=== PATIENT | female | born 1955 | race Caucasian/White ===

== ENCOUNTER 2023-05-02 10:43 | Outpatient (OUT) | payer OTHER, SELFPAY ==
--- NOTE | 2023-05-02 | VEIN_ITS ---
[address] [address] Patient Name: BELIA RIOS MRN: [id number] date: 1955 Sex: F Assigned Patient Location: Current Patient Location: Accession/Order Number: [id number] Exam Date: 05/02/2023 11:00 Report Date: 05/02/2023 12:12 At the request of: RIP ALCARAZ Procedure: VC INJ Foam Sclerosant WUS BANBURY MACHINE OPERATOR PROCEDURE: VC INJ Foam Sclerosant WUS BANBURY MACHINE OPERATOR COMPARISON: Bilateral venous reflux 03/14/2023 HISTORY: Pain due to varicose veins of bilateral legs I83.813 Pre-operative Diagnosis: CEAP class C5 venous insufficiency with pain, tenderness, edema and incompetent branch saphenous vein(s), chronic venous insufficiency right leg secondary to venous incompetence Post-operative Diagnosis: CEAP class C5 venous insufficiency with pain, tenderness, edema and incompetent branch saphenous vein(s), chronic venous insufficiency right leg secondary to venous incompetence Procedure Performed: 1. Ultrasound-guided microfoam chemical ablation with Varithenaregistered 2. Intraoperative ultrasound guidance Physician: Elier Milian M.D. Anesthesia: None Indications for Procedure: 67 year old female. Symptoms including lower extremity swelling, pain, cramping, bulging veins for many years despite conservative medical therapy including medical compression stockings, exercise and analgesics. Prior procedures include : None. Multiple incompetent varicosities of the right leg. Duplex scan showed reflux and enlarged diameters up to 4 mm. The patient underwent informed consent including management options where the complications of infection, bleeding, pain, and skin injury were discussed. Particular attention was spent discussing thrombus extension and deep vein thrombosis as well as the possibility of pulmonary embolus and treatment with oral or injectable blood thinners. Procedure: The patient walked to the procedure room. All applicable staff donned appropriate apparel. A procedure timeout was performed to confirm correct patient, correct extremity, correct procedure, and correct room set-up including presence of all applicable supplies, devices, and drugs. A duplex ultrasound, performed by myself confirmed the location and incompetence of branch saphenous varicosities and their course was marked on the skin together with the dilated tributaries. The extent of treatment of the vein and the associated varicosities was determined through ultrasound mapping. The skin was prepped and then punctured with a butterfly needle and advanced under ultrasound guidance. The Varithenaregistered canister was activated and the canister was primed and purged as required in the instructions for use. Varithenaregistered was drawn into a sterile syringe. Varithenaregistered was slowly administered at 0.5-1.0 cc/second with close observation by ultrasound of its course in the vessels. Total volume utilized was: 15 mL (10 mL within the 4 mm incompetent varicosity of the distal medial lower leg; 5 mL into a 4 mm incompetent varicosity of the anterior lateral lower leg). Following administration of Varithenaregistered the leg was elevated and the patient was asked to repeatedly dorsiflex the ankle to limit flow of Varithenaregistered into perforating veins. Once appropriate spasm had been confirmed in the treated veins, the vascular catheter was removed from the leg and light pressure was applied over the puncture site for hemostasis. The common femoral and deep superficial veins were then evaluated for flow and compressibility prior to dressing placement. The lower extremity was kept elevated at 45 degrees above the horizontal and cording material was applied over the saphenous segments and tributaries to allow for eccentric compression over the target vessels including the targeted saphenous vein(s). A multilayer dressing was applied consisting of foam pads, coban and thigh-high 20-30 mm Hg compression elastic support hose were placed on the patient. The leg was lowered only after compression had been applied and the patient was immediately ambulatory. The patient ambulated 10 minutes under supervision and was without apparent concerns at time of release. Post-care instructions include advising patient to keep post-treatment bandages in place and dry for 48 hours, avoid extended periods of inactivity, avoid heavy exercise for one week, wear compression stockings on the treated leg continuously for two weeks, to walk daily for 10 minutes over the next month. The patient was instructed to take an anti-inflammatory medicine as needed and to follow up for color duplex scan of the Saphenous veins, the treated branch saphenous varicosities, the adjacent deep veins, and additional treatment within 7 days. PERSONNEL: Lionel Juarez RN and Marylou Tijerina RN Electronically authenticated by: ELIER MILIAN Date: 05/02/2023 12:12
== END 2023-05-02 10:44 ==
LOC: VC 10:43
PROVIDERS: PCP Radiology Diagnostic Radiology; Visit Provider Radiology Diagnostic Radiology
DX: I83.813 Varicose veins of bilateral lower extremities with pain (principal)
CPT/HCPCS: 36466

== ENCOUNTER 2023-05-17 10:48 | Outpatient (OUT) | payer OTHER, SELFPAY ==
--- NOTE | 2023-05-17 10:50 | VEIN_ITS ---
Patient: BELIA RIOS Exam Date: 05/17/2023 : 1955 Gender:F Ordering : DR HOANG MONTOYA M.D. Admission #: [id number] Family : Order #: [id number] CLICK HERE TO VIEW EXAM RADIOLOGY REPORT PROCEDURE: [facility] - OFFICE VISIT FOLLOW UP COMPARISON: None. PROGRESS NOTES: The patient reports no significant problems following right leg micro foam chemical ablation. The patient has worn her compression wrap. The patient has had some weight loss. The patient did not require oral analgesics. The patient has followed our recommendations to walk 20-30 minutes once or twice per day since the procedure. Physical exam again demonstrates severe skin thickening hemosiderin staining and swelling below the knee. Thrombosed varicose veins can be palpated. No areas of erythema or warmth to suggest cellulitis or thrombophlebitis. No active ulceration Review of the ultrasound performed the same day demonstrates occlusive thrombus extending throughout the treated leg varicose veins with no deep vein thrombus. The patient expressed a desire to proceed with treatment of incompetent varicose veins. IMPRESSION: 1. Successful ablation of incompetent right leg varicose veins 2. Persistent bilateral incompetent varicose veins PLAN: Micro foam chemical ablation left leg incompetent varicose veins Nurse notes, history and physical were reviewed and confirmed, see attached forms. The nurse was present throughout the physical exam and consultation Dictated by: Hoang Montoya MD on 05/17/2023 at 11:29 Approved by: Hoang Montoya MD on 05/17/2023 at 11:30
--- NOTE | 2023-05-17 10:50 | VEIN_ITS ---
Patient: BELIA RIOS Exam Date: 05/17/2023 : 1955 Gender:F Ordering : DR HOANG MONTOYA M.D. Admission #: [id number] Family : Order #: [id number] CLICK HERE TO VIEW EXAM RADIOLOGY REPORT PROCEDURE: VC EXT VENOUS RT LMTD COMPARISON: None. INDICATIONS: Phlebitis of superficial veins of rt lower extremity I80.01 TECHNIQUE: Lower extremity painting scale and Duplex Doppler evaluation of the deep venous system from the inguinal ligament through the calf veins. FINDINGS: REGION: Right lower extremity. THROMBI: Negative for DVT. Varithena induced thrombus visualized at dist/med calf, prox/med calf, and prox/ant calf. COMPRESSIBILITY: Non-compressible segments corresponding to thrombus. FLOW: Absent flow corresponding to thrombus. OTHER: Multiple patent varicose veins remain. *Exam performed in accordance with [facility] practice guidelines- Peripheral venous ultrasound, February 12, 2010. CONCLUSION: 1. Post ablation occlusion of treated right leg varicose veins with no deep vein thrombus 2. Multiple patent residual incompetent varicose veins remaining Dictated by: Hoang Montoya MD on 05/17/2023 at 11:10 Approved by: Hoang Montoya MD on 05/17/2023 at 11:25
== END 2023-05-17 10:49 | disposition home or self-care (01) ==
LOC: VC 10:48
PROVIDERS: PCP Radiology Diagnostic Radiology; Visit Provider Radiology Diagnostic Radiology
DX: I80.01 Phlebitis and thrombophlebitis of superficial vessels of right lower extremity (principal)
CPT/HCPCS: 93971; G0463

== ENCOUNTER 2023-05-30 12:31 | Outpatient (OUT) | payer OTHER, SELFPAY ==
--- NOTE | 2023-05-30 | VEIN_ITS ---
The [address] [address] Patient Name: BELIA RIOS MRN: [id number] date: 1955 Sex: F Assigned Patient Location: Current Patient Location: Accession/Order Number: [id number] Exam Date: 05/30/2023 12:38 Report Date: 05/30/2023 13:43 At the request of: RIP ALCARAZ Procedure: VC INJ Foam Sclerosant WUS BACKGROUND CHECK COORDINATOR PROCEDURE: VC INJ Foam Sclerosant WUS BACKGROUND CHECK COORDINATOR HISTORY: Pain due to varicose veins of bilateral legs I83.813 Pre-operative Diagnosis: CEAP class C5 venous insufficiency with pain, tenderness, edema and incompetent branch saphenous vein(s), chronic venous insufficiency left leg secondary to venous incompetence Post-operative Diagnosis: CEAP class C5 venous insufficiency with pain, tenderness, edema and incompetent branch saphenous vein(s), chronic venous insufficiency left leg secondary to venous incompetence Procedure Performed: 1. Ultrasound-guided microfoam chemical ablation with Varithenaregistered 2. Intraoperative ultrasound guidance Physician: Elier Milian M.D. Anesthesia: None Indications for Procedure: 67 year old female. Symptoms including lower extremity bulging veins, pain, cramping, swelling for many years despite conservative medical therapy including medical compression stockings, exercise and analgesics. Prior procedures include endovenous laser ablation and Microfoam chemical ablation. Multiple incompetent varicosities of the left leg. Duplex scan showed reflux and enlarged diameters up to 7 mm. The patient underwent informed consent including management options where the complications of infection, bleeding, pain, and skin injury were discussed. Particular attention was spent discussing thrombus extension and deep vein thrombosis as well as the possibility of pulmonary embolus and treatment with oral or injectable blood thinners. Procedure: The patient walked to the procedure room. All applicable staff donned appropriate apparel. A procedure timeout was performed to confirm correct patient, correct extremity, correct procedure, and correct room set-up including presence of all applicable supplies, devices, and drugs. A duplex ultrasound, performed by myself confirmed the location and incompetence of branch saphenous varicosities and their course was marked on the skin together with the dilated tributaries. The extent of treatment of the vein and the associated varicosities was determined through ultrasound mapping. The skin was prepped and then punctured with a butterfly needle and advanced under ultrasound guidance. The Varithenaregistered canister was activated and the canister was primed and purged as required in the instructions for use. Varithenaregistered was drawn into a sterile syringe. Varithenaregistered was slowly administered at 0.5-1.0 cc/second with close observation by ultrasound of its course in the vessels. Total volume utilized was: 15 mL (8 mL within an incompetent 7 mm varicosity of the distal medial lower leg; 7 mL within an incompetent 7 mm varicosity medial to the knee). Following administration of Varithenaregistered the leg was elevated and the patient was asked to repeatedly dorsiflex the ankle to limit flow of Varithenaregistered into perforating veins. Once appropriate spasm had been confirmed in the treated veins, the vascular catheter was removed from the leg and light pressure was applied over the puncture site for hemostasis. The common femoral and deep superficial veins were then evaluated for flow and compressibility prior to dressing placement. The lower extremity was kept elevated at 45 degrees above the horizontal and cording material was applied over the saphenous segments and tributaries to allow for eccentric compression over the target vessels including the targeted saphenous vein(s). A multilayer dressing was applied consisting of foam pads, coban and thigh-high 20-30 mm Hg compression elastic support hose were placed on the patient. The leg was lowered only after compression had been applied and the patient was immediately ambulatory. The patient ambulated 10 minutes under supervision and was without apparent concerns at time of release. Post-care instructions include advising patient to keep post-treatment bandages in place and dry for 48 hours, avoid extended periods of inactivity, avoid heavy exercise for one week, wear compression stockings on the treated leg continuously for two weeks, to walk daily for 10 minutes over the next month. The patient was instructed to take an anti-inflammatory medicine as needed and to follow up for color duplex scan of the Saphenous veins, the treated branch saphenous varicosities, the adjacent deep veins, and additional treatment within 7 days. PERSONNEL: Lionel Juarez RN Electronically authenticated by: ELIER MILIAN Date: 05/30/2023 13:43
== END 2023-05-30 12:32 | disposition home or self-care (01) ==
LOC: VC 12:32
PROVIDERS: PCP Radiology Diagnostic Radiology; Visit Provider Radiology Diagnostic Radiology
DX: I83.813 Varicose veins of bilateral lower extremities with pain (principal)
CPT/HCPCS: 36466

== ENCOUNTER 2023-06-11 14:24 | Outpatient (OUT) | payer OTHER, SELFPAY ==
--- NOTE | 2023-06-11 | VEIN_ITS ---
Patient: BELIA RISO Exam Date: 06/11/2023 : 1955 Gender:F Ordering : DR RIP ALCARAZ M.D. Admission #: [id number] Family : Order #: [id number] CLICK HERE TO VIEW EXAM RADIOLOGY REPORT PROCEDURE: VC EXT VENOUS LT LIMITED COMPARISON: None. INDICATIONS: I80.02 Phlebitis of superficial veins of lt lower extremity TECHNIQUE: Lower extremity painting scale and Duplex Doppler evaluation of the deep venous system from the inguinal ligament through the calf veins. FINDINGS: REGION: Left lower extremity. THROMBI: Negative for DVT. Chemically induced thrombus in multiple varicose veins from distal medial lower leg to medial knee. COMPRESSIBILITY: Non-compressible segments. FLOW: Areas of no flow. OTHER: Patent varicose vein mid medial thigh 4.6 mm. Varicosity proximal medial lower leg 5.8mm. [employer] lateral medi lower leg measures 4.6 mm. Varicose vein proximal anterior lower leg 5.3 mm. CONCLUSION: 1. Successful post ablation occlusion of treated branch saphenous varicosities. Dictated by: Elier Milian M.D. on 06/11/2023 at 15:00 Approved by: Elier Milian M.D. on 06/11/2023 at 15:01
--- NOTE | 2023-06-11 | VEIN_ITS ---
Patient: BELIA RIOS Exam Date: 06/11/2023 : 1955 Gender:F Ordering : DR RIP ALCARAZ M.D. Admission #: [id number] Family : Order #: [id number] CLICK HERE TO VIEW EXAM RADIOLOGY REPORT PROCEDURE: [facility] EST [facility] VEIN C[facility] - OFFICE VISIT FOLLOW UP COMPARISON: [facility], 05/17/2023. PROGRESS NOTES: The patient reports improvement in leg symptoms. There has been interval reduction in varicosities. The patient has followed our recommendations to walk 20-30 minutes once or twice per day since the procedure. Physical exam demonstrates decrease in varicosities of the leg. Persistent incompetent varicosities are identified along the legs bilaterally. Review of the ultrasound performed the same day demonstrates occlusive thrombus extending throughout the treated vein(s), see separate report, consistent with a successful ablation. No thrombus extending into or beyond the saphenofemoral junction. The patient expressed a desire to proceed with treatment of remaining varicosities. The patient was informed that treatment was a process and would require several procedures/sessions. [facility] IM[facility]: 1. Successful ablation of the left leg incompetent branch saphenous vein(s). 2. Persistent incompetent branch saphenous veins and bilateral lower extremity symptoms. PLAN: Microfoam chemical ablation of right leg incompetent branch saphenous varicosities. Nurse notes, history and physical were reviewed and confirmed, see attached forms. The nurse was present throughout the physical exam and consultation Dictated by: Elier Milian M.D. on 06/11/2023 at 15:01 Approved by: Elier Milian M.D. on 06/11/2023 at 15:07
== END 2023-06-11 14:25 | disposition home or self-care (01) ==
LOC: VC 14:28
PROVIDERS: PCP Radiology Diagnostic Radiology; Visit Provider Radiology Diagnostic Radiology
DX: I80.02 Phlebitis and thrombophlebitis of superficial vessels of left lower extremity (principal)
CPT/HCPCS: 93971; G0463

== ENCOUNTER 2023-06-27 12:41 | Outpatient (OUT) | payer OTHER, SELFPAY ==
--- NOTE | 2023-06-27 | VEIN_ITS ---
The [address] [address] Patient Name: BELIA RIOS MRN: [id number] date: 1955 Sex: F Assigned Patient Location: Current Patient Location: Accession/Order Number: [id number] Exam Date: 06/27/2023 12:30 Report Date: 06/27/2023 15:05 At the request of: RIP ALCARAZ Procedure: VC INJ Foam Sclerosant WUS IMPLEMENTATION ARCHITECT PROCEDURE: VC INJ Foam Sclerosant WUS IMPLEMENTATION ARCHITECT HISTORY: Pain due to varicose veins of bilateral legs I83.813 Pre-operative Diagnosis: CEAP class C5 venous insufficiency with pain, tenderness, edema and incompetent branch saphenous vein(s), chronic venous insufficiency right leg secondary to venous incompetence Post-operative Diagnosis: CEAP class C5 venous insufficiency with pain, tenderness, edema and incompetent branch saphenous vein(s), chronic venous insufficiency right leg secondary to venous incompetence Procedure Performed: 1. Ultrasound-guided microfoam chemical ablation with Varithenaregistered 2. Intraoperative ultrasound guidance Physician: Elier Milian M.D. Anesthesia: None Indications for Procedure: 67 year old female. Symptoms including lower extremity swelling, tenderness, itching, discolored dilated veins for many years despite conservative medical therapy including medical compression stockings, exercise and analgesics. Prior procedures include Microfoam chemical ablation. Multiple incompetent varicosities of the right leg. Duplex scan showed reflux and enlarged diameters up to 4 mm. The patient underwent informed consent including management options where the complications of infection, bleeding, pain, and skin injury were discussed. Particular attention was spent discussing thrombus extension and deep vein thrombosis as well as the possibility of pulmonary embolus and treatment with oral or injectable blood thinners. Procedure: The patient walked to the procedure room. All applicable staff donned appropriate apparel. A procedure timeout was performed to confirm correct patient, correct extremity, correct procedure, and correct room set-up including presence of all applicable supplies, devices, and drugs. A duplex ultrasound, performed by myself confirmed the location and incompetence of branch saphenous varicosities and their course was marked on the skin together with the dilated tributaries. The extent of treatment of the vein and the associated varicosities was determined through ultrasound mapping. The skin was prepped and then punctured with a butterfly needle and advanced under ultrasound guidance. The Varithenaregistered canister was activated and the canister was primed and purged as required in the instructions for use. Varithenaregistered was drawn into a sterile syringe. Varithenaregistered was slowly administered at 0.5-1.0 cc/second with close observation by ultrasound of its course in the vessels. Total volume utilized was: 15 mL (10 mL 24 mm varicosity of the anterior proximal lower right leg; 5 mL into a 4 mm varicosity of the mid anterior upper right leg). Following administration of Varithenaregistered the leg was elevated and the patient was asked to repeatedly dorsiflex the ankle to limit flow of Varithenaregistered into perforating veins. Once appropriate spasm had been confirmed in the treated veins, the vascular catheter was removed from the leg and light pressure was applied over the puncture site for hemostasis. The common femoral and deep superficial veins were then evaluated for flow and compressibility prior to dressing placement. The lower extremity was kept elevated at 45 degrees above the horizontal and cording material was applied over the saphenous segments and tributaries to allow for eccentric compression over the target vessels including the targeted saphenous vein(s). A multilayer dressing was applied consisting of foam pads, coban and thigh-high 20-30 mm Hg compression elastic support hose were placed on the patient. The leg was lowered only after compression had been applied and the patient was immediately ambulatory. The patient ambulated 10 minutes under supervision and was without apparent concerns at time of release. Post-care instructions include advising patient to keep post-treatment bandages in place and dry for 48 hours, avoid extended periods of inactivity, avoid heavy exercise for one week, wear compression stockings on the treated leg continuously for two weeks, to walk daily for 10 minutes over the next month. The patient was instructed to take an anti-inflammatory medicine as needed and to follow up for color duplex scan of the Saphenous veins, the treated branch saphenous varicosities, the adjacent deep veins, and additional treatment within 7 days. PERSONNEL: Lionel Juarez RN Electronically authenticated by: ELIER MILIAN Date: 06/27/2023 15:05
== END 2023-06-27 12:42 | disposition home or self-care (01) ==
LOC: VC 12:41
PROVIDERS: PCP Radiology Diagnostic Radiology; Visit Provider Radiology Diagnostic Radiology
DX: I83.813 Varicose veins of bilateral lower extremities with pain (principal); I80.01 Phlebitis and thrombophlebitis of superficial vessels of right lower extremity
CPT/HCPCS: 36466

== ENCOUNTER 2023-07-11 12:12 | Outpatient (OUT) | payer OTHER, SELFPAY ==
--- NOTE | 2023-07-11 | VEIN_ITS ---
Patient: BELIA RIOS Exam Date: 07/11/2023 : 1955 Gender:F Ordering : DR RIP ALCARAZ M.D. Admission #: [id number] Family : Order #: [id number] CLICK HERE TO VIEW EXAM RADIOLOGY REPORT PROCEDURE: [facility] EST [facility] - OFFICE VISIT FOLLOW UP [facility] PROGRESS NOTES: The patient reports improvement in leg symptoms. There has been interval reduction in varicosities. The patient has followed our recommendations to walk 20-30 minutes once or twice per day since the procedure. Physical exam demonstrates decrease in varicosities of the leg. Persistent varicosities are identified along the legs bilaterally. Review of the ultrasound performed the same day demonstrates occlusive thrombus extending throughout the treated vein(s), see separate report, consistent with a successful ablation. No thrombus extending into or beyond the saphenofemoral junction. The patient expressed a desire to proceed with treatment of remaining dilated and incompetent superficial veins. The patient was informed that treatment was a process and would require several procedures/sessions. VEIN/[facility] EST LMTD IMPRESSION: 1. Successful ablation of the treated right leg incompetent branch saphenous vein(s). 2. Persistent dilated and incompetent varicose veins and lower extremity symptoms. PLAN: 1. Microfoam chemical ablation of left lower extremity incompetent branch saphenous varicosities. Nurse notes, history and physical were reviewed and confirmed, see attached forms. The nurse was present throughout the physical exam and consultation Dictated by: Elier Milian M.D. on 07/11/2023 at 13:43 Approved by: Elier Milian M.D. on 07/11/2023 at 13:44
--- NOTE | 2023-07-11 | VEIN_ITS ---
Patient: BELIA RIOS Exam Date: 07/11/2023 : 1955 Gender:F Ordering : DR RIP ALCARAZ M.D. Admission #: [id number] Family : Order #: [id number] CLICK HERE TO VIEW EXAM RADIOLOGY REPORT PROCEDURE: [facility] EXT VENOUS RT LMTD COMPARISON: [facility] EXT VENOUS RT LMTD, 05/17/2023. INDICATIONS: Phlebitis of superficial veins of rt lower extremity I80.01 TECHNIQUE: Lower extremity painting scale and Duplex Doppler evaluation of the deep venous system from the inguinal ligament through the calf veins. FINDINGS: REGION: Right lower extremity. THROMBI: Negative for DVT. Chronic partial thrombus in right popliteal vein. Chemically induced thrombus in multiple varicose veins. COMPRESSIBILITY: Non-compressible segments. FLOW: Areas of no flow. OTHER: Patent varicose vein distal medial thigh measures 5.6 mm. Varicosity medial knee measures 4.9 mm. CONCLUSION: 1. Successful post ablation occlusion of treated right lower extremity branch saphenous varicosities. Dictated by: Elier Milian M.D. on 07/11/2023 at 13:42 Approved by: Elier Milian M.D. on 07/11/2023 at 13:43
== END 2023-07-11 12:13 | disposition home or self-care (01) ==
LOC: VC 12:12
PROVIDERS: PCP Radiology Diagnostic Radiology; Visit Provider Radiology Diagnostic Radiology
DX: I80.01 Phlebitis and thrombophlebitis of superficial vessels of right lower extremity (principal)
CPT/HCPCS: 93971; G0463

== ENCOUNTER 2023-08-06 12:30 | Outpatient (OUT) | payer OTHER, SELFPAY ==
--- NOTE | 2023-08-06 | VEIN_ITS ---
[address] [address] Patient Name: BELIA RIOS MRN: [id number] date: 1955 Sex: F Assigned Patient Location: Current Patient Location: Accession/Order Number: [id number] Exam Date: 08/06/2023 12:53 Report Date: 08/06/2023 15:59 At the request of: RIP ALCARAZ Procedure: VC INJ Foam Sclerosant WUS ENTRY LEVEL BUYER PROCEDURE: VC INJ Foam Sclerosant WUS ENTRY LEVEL BUYER - right leg COMPARISON: None. HISTORY: Pain due to varicose veins of bilateral legs I83.813 Pre-operative Diagnosis: CEAP class C5 venous insufficiency with pain, tenderness, edema and incompetent right saphenous vein(s), chronic venous insufficiency right leg secondary to venous incompetence Post-operative Diagnosis: CEAP class C5 venous insufficiency with pain, tenderness, edema and incompetent right saphenous vein(s), chronic venous insufficiency right leg secondary to venous incompetence Procedure Performed: 1. Ultrasound-guided microfoam chemical ablation with Varithenaregistered 2. Intraoperative ultrasound guidance Anesthesia: None Indications for Procedure: 67 year old female. Symptoms including lower extremity swelling, tenderness and itching. The patient failed conservative medical therapy including medical compression stockings, exercise and analgesics. Prior procedures include endovenous laser ablation. Multiple incompetent varicosities of the right leg. Duplex scan showed reflux and enlarged diameters up to 8 mm. The patient underwent informed consent including management options where the complications of infection, bleeding, pain, and skin injury were discussed. Particular attention was spent discussing thrombus extension and deep vein thrombosis as well as the possibility of pulmonary embolus and treatment with oral or injectable blood thinners. Procedure: The patient walked to the procedure room. All applicable staff donned appropriate apparel. A procedure timeout was performed to confirm correct patient, correct extremity, correct procedure, and correct room set-up including presence of all applicable supplies, devices, and drugs. A duplex ultrasound, performed by myself confirmed the location and incompetence of branch saphenous varicosities and their course was marked on the skin together with the dilated tributaries. The extent of treatment of the vein and the associated varicosities was determined through ultrasound mapping. The skin was prepped and then punctured with a butterfly needle and advanced under ultrasound guidance. The Varithenaregistered canister was activated and the canister was primed and purged as required in the instructions for use. Varithenaregistered was drawn into a sterile syringe. The following injections were made: 6 cc injected into an 8 mm varicose vein left medial lower leg 5 cc injected into a 6 mm varicose vein left mid medial lower leg 4 cc injected into a 6 mm varicose vein left mid lateral lower leg Varithenaregistered was slowly administered at 0.5-1.0 cc/second with close observation by ultrasound of its course in the vessels. Total volume utilized was 15 cc. Following administration of Varithenaregistered the leg was elevated and the patient was asked to repeatedly dorsiflex the ankle to limit flow of Varithenaregistered into perforating veins. Once appropriate spasm had been confirmed in the treated veins, the vascular catheter was removed from the leg and light pressure was applied over the puncture site for hemostasis. The common femoral and deep superficial veins were then evaluated for flow and compressibility prior to dressing placement. The lower extremity was kept elevated at 45 degrees above the horizontal and cording material was applied over the saphenous segments and tributaries to allow for eccentric compression over the target vessels including the targeted saphenous vein(s). A multilayer dressing was applied consisting of foam pads, coban and thigh-high 20-30 mm Hg compression elastic support hose were placed on the patient. The leg was lowered only after compression had been applied and the patient was immediately ambulatory. The patient ambulated 10 minutes under supervision and was without apparent concerns at time of release. Post-care instructions include advising patient to keep post-treatment bandages in place and dry for 48 hours, avoid extended periods of inactivity, avoid heavy exercise for one week, wear compression stockings on the treated leg continuously for two weeks, to walk daily for 10 minutes over the next month. The patient was instructed to take an anti-inflammatory medicine as needed and to follow up for color duplex scan of the Saphenous veins, the treated branch saphenous varicosities, the adjacent deep veins, and additional treatment within 7 days. PERSONNEL: Lionel Juarez RN Electronically authenticated by: RIP ALCARAZ Date: 08/06/2023 15:59
== END 2023-08-06 12:31 | disposition home or self-care (01) ==
LOC: VC 12:31
PROVIDERS: PCP Radiology Diagnostic Radiology; Visit Provider Radiology Diagnostic Radiology
DX: I83.813 Varicose veins of bilateral lower extremities with pain (principal)
CPT/HCPCS: 36466

== ENCOUNTER 2023-08-09 14:31 | Outpatient (OUT) | payer OTHER, SELFPAY ==
--- NOTE | 2023-08-09 | VEIN_ITS ---
Patient: BELIA RIOS Exam Date: 08/09/2023 : 1955 Gender:F Ordering : DR RIP ALCARAZ M.D. Admission #: [id number] Family : Order #: [id number] CLICK HERE TO VIEW EXAM RADIOLOGY REPORT PROCEDURE: VC EXT VENOUS LT LIMITED COMPARISON: VC EXT VENOUS LT LIMITED, 06/11/2023. INDICATIONS: Phlebitis of superficial veins of lt lower extremity I80.02 TECHNIQUE: Lower extremity painting scale and Duplex Doppler evaluation of the deep venous system from the inguinal ligament through the calf veins. FINDINGS: REGION: Left lower extremity. THROMBI: Negative for DVT. Varithena induced thrombus visualized at mid/med calf, mid/lat calf, and distal/med calf. COMPRESSIBILITY: Non-compressible segments. FLOW: Areas of no flow. OTHER: Multiple varicose veins remain. CONCLUSION: 1. Successful post ablation occlusion of treated branch saphenous varicosities within left lower extremity. Dictated by: Elier Milian M.D. on 08/09/2023 at 15:26 Approved by: Elier Milian M.D. on 08/09/2023 at 15:27
--- NOTE | 2023-08-09 | VEIN_ITS ---
Patient: BELIA RIOS Exam Date: 08/09/2023 : 1955 Gender:F Ordering : DR RIP ALCARAZ M.D. Admission #: [id number] Family : Order #: [id number] CLICK HERE TO VIEW EXAM RADIOLOGY REPORT PROCEDURE: [facility] EST LMTD VEIN CENTER - OFFICE VISIT FOLLOW UP [facility] PROGRESS NOTES: The patient reports improvement in leg symptoms. There has been interval reduction in varicosities. The patient has followed our recommendations to walk 20-30 minutes once or twice per day since the procedure. Physical exam demonstrates decrease in varicosities of the leg. Persistent varicosities are identified along the bilateral lower extremities. Review of the ultrasound performed the same day demonstrates occlusive thrombus extending throughout the treated vein(s), see separate report, consistent with a successful ablation. No thrombus extending into or beyond the saphenofemoral junction. The patient expressed a desire to proceed with treatment of remaining incompetent varicosities. The patient was informed that treatment was a process and would require 2-3 procedures/sessions. VEIN/[facility] EST LMTD IMPRESSION: 1. Successful ablation of the treated left lower extremity incompetent branch saphenous vein(s). 2. Persistent incompetent varicose veins and bilateral lower extremity symptoms. PLAN: 1. Microfoam chemical ablation of right lower extremity branch saphenous varicosities. Nurse notes, history and physical were reviewed and confirmed, see attached forms. The nurse was present throughout the physical exam and consultation Dictated by: Elier Milian M.D. on 08/09/2023 at 15:27 Approved by: Elier Milian M.D. on 08/09/2023 at 15:29
== END 2023-08-09 14:32 | disposition home or self-care (01) ==
LOC: VC 14:32
PROVIDERS: PCP Radiology Diagnostic Radiology; Visit Provider Radiology Diagnostic Radiology
DX: I80.02 Phlebitis and thrombophlebitis of superficial vessels of left lower extremity (principal)
CPT/HCPCS: 93971; G0463

== ENCOUNTER 2023-08-27 13:19 | Outpatient (OUT) | payer OTHER, SELFPAY ==
--- NOTE | 2023-08-27 13:34 | VEIN_ITS ---
[address] [address] Patient Name: BELIA RIOS MRN: [id number] date: 1955 Sex: F Assigned Patient Location: Current Patient Location: Accession/Order Number: [id number] Exam Date: 08/27/2023 13:30 Report Date: 08/27/2023 14:55 At the request of: RIP ALCARAZ Procedure: VC INJ Foam Sclerosant WUS UNDERWATER WELDER PROCEDURE: VC INJ Foam Sclerosant WUS UNDERWATER WELDER COMPARISON: None. HISTORY: Pain due to varicose veins of bilateral legs I83.813 Pre-operative Diagnosis: CEAP class C5 venous insufficiency with pain, tenderness, edema and incompetent great saphenous vein incompetent varicose vein(s), chronic venous insufficiency right leg secondary to venous incompetence Post-operative Diagnosis: CEAP class C5 venous insufficiency with pain, tenderness, edema and incompetent great saphenous vein incompetent varicose vein(s), chronic venous insufficiency right leg secondary to venous incompetence Procedure Performed: 1. Ultrasound-guided microfoam chemical ablation with Varithenaregistered 2. Intraoperative ultrasound guidance Anesthesia: None Indications for Procedure: 67-year-old female who presents with a long history of lower extremity pain swelling in varicose veins with hemosiderin staining, erythema, skin thickening and venous stasis ulcerations. The patient failed conservative medical therapy including medical compression stockings, exercise and analgesics. Prior procedures include . Multiple incompetent varicosities of the right leg. Duplex scan showed reflux and enlarged diameters up to 6 mm. The patient underwent informed consent including management options where the complications of infection, bleeding, pain, and skin injury were discussed. Particular attention was spent discussing thrombus extension and deep vein thrombosis as well as the possibility of pulmonary embolus and treatment with oral or injectable blood thinners. Procedure: The patient walked to the procedure room. All applicable staff donned appropriate apparel. A procedure timeout was performed to confirm correct patient, correct extremity, correct procedure, and correct room set-up including presence of all applicable supplies, devices, and drugs. A duplex ultrasound, performed by myself confirmed the location and incompetence of branch saphenous varicosities and their course was marked on the skin together with the dilated tributaries. The extent of treatment of the vein and the associated varicosities was determined through ultrasound mapping. The skin was prepped and then punctured with a butterfly needle and advanced under ultrasound guidance. The Varithenaregistered canister was activated and the canister was primed and purged as required in the instructions for use. Varithenaregistered was drawn into a sterile syringe. Following injections were made: 7 cc injection into a 5 mm varicose vein distal medial right lower leg 4 cc injection into a 6 mm varicose vein proximal medial right lower leg 4 cc injected into a 5 mm vein mid lateral right lower leg Varithenaregistered was slowly administered at 0.5-1.0 cc/second with close observation by ultrasound of its course in the vessels. Total volume utilized was: 15 cc. Following administration of Varithenaregistered the leg was elevated and the patient was asked to repeatedly dorsiflex the ankle to limit flow of Varithenaregistered into perforating veins. Once appropriate spasm had been confirmed in the treated veins, the vascular catheter was removed from the leg and light pressure was applied over the puncture site for hemostasis. The common femoral and deep superficial veins were then evaluated for flow and compressibility prior to dressing placement. The lower extremity was kept elevated at 45 degrees above the horizontal and cording material was applied over the saphenous segments and tributaries to allow for eccentric compression over the target vessels including the targeted saphenous vein(s). A multilayer dressing was applied consisting of foam pads, coban and thigh-high 20-30 mm Hg compression elastic support hose were placed on the patient. The leg was lowered only after compression had been applied and the patient was immediately ambulatory. The patient ambulated 10 minutes under supervision and was without apparent concerns at time of release. Post-care instructions include advising patient to keep post-treatment bandages in place and dry for 48 hours, avoid extended periods of inactivity, avoid heavy exercise for one week, wear compression stockings on the treated leg continuously for two weeks, to walk daily for 10 minutes over the next month. The patient was instructed to take an anti-inflammatory medicine as needed and to follow up for color duplex scan of the Saphenous veins, the treated branch saphenous varicosities, the adjacent deep veins, and additional treatment within 7 days. PERSONNEL: Lionel Juarez RN Electronically authenticated by: RIP ALCARAZ Date: 08/27/2023 14:55
== END 2023-08-27 13:20 | disposition home or self-care (01) ==
LOC: VC 13:19
PROVIDERS: PCP Radiology Diagnostic Radiology; Visit Provider Radiology Diagnostic Radiology
DX: I83.813 Varicose veins of bilateral lower extremities with pain (principal)
CPT/HCPCS: 36466

== ENCOUNTER 2023-09-03 12:18 | Outpatient (OUT) | payer OTHER, SELFPAY ==
--- NOTE | 2023-09-03 12:22 | VEIN_ITS ---
Patient: BELIA RIOS Exam Date: 09/03/2023 : 1955 Gender:F Ordering : DR HOANG MONTOYA M.D. Admission #: [id number] Family : Order #: [id number] CLICK HERE TO VIEW EXAM RADIOLOGY REPORT PROCEDURE: VC EXT VENOUS RT LMTD COMPARISON: VC EXT VENOUS RT LMTD, 07/11/2023. VC EXT VENOUS RT LMTD, 05/17/2023. INDICATIONS: Phlebitis of superficial veins of rt lower extremity I80.01 TECHNIQUE: Lower extremity painting scale and Duplex Doppler evaluation of the deep venous system from the inguinal ligament through the calf veins. FINDINGS: REGION: Right lower extremity. THROMBI: Negative for DVT. Areas treated with Varithena microfoam are seen with echogenic thrombus. Unable to visualized the proximal PTV's and the Radha Veins due to swelling and body Habitus. COMPRESSIBILITY: Non-compressible & partially compressible segments. FLOW: Areas of no flow. OTHER: Patent varicose vein visualized in the lateral proximal calf measures 5.5 mm with 1.0s of reflux. Patent varicose vein visualized on the distal anterior thigh measures 5.4mm with 0.7s of reflux CONCLUSION: Post ablation occlusion of treated varicose veins. Dictated by: Hoang Montoya MD on 09/03/2023 at 13:15 Approved by: Hoang Montoya MD on 09/03/2023 at 13:17
--- NOTE | 2023-09-03 12:22 | VEIN_ITS ---
Patient: BELIA RIOS Exam Date: 09/03/2023 : 1955 Gender:F Ordering : DR HOANG MONTOYA M.D. Admission #: [id number] Family : Order #: [id number] CLICK HERE TO VIEW EXAM RADIOLOGY REPORT PROCEDURE: FACILITY EST LMTD VEIN CENTER - OFFICE VISIT FOLLOW UP COMPARISON: [facility] EST LMTD, 08/09/2023. [facility] EST LMTD, 07/11/2023. PROGRESS NOTES: The patient reports significant improvement in her initial presenting symptoms with no problems following micro foam chemical ablation of right leg incompetent varicose veins. There has been interval reduction in varicosities. The patient has worn her compression stockings. The patient has tried exercise within her ability. Physical exam demonstrates scattered thrombosed varicose veins. Significant reduction and erythema and skin thickness with persistent pitting edema on both legs, left greater than right. No areas of erythema or warmth. No evidence of cellulitis or thrombophlebitis. No active ulceration Review of the ultrasound performed the same day demonstrates occlusive thrombus extending throughout the treated right leg incompetent varicose veins. Bilateral incompetent varicose veins remain. The patient expressed a desire to proceed with treatment of incompetent varicose veins. VEIN/[facility] EST LMTD IMPRESSION: 1. Successful ablation of treated right leg incompetent varicose veins 2. Persistent bilateral leg incompetent varicose veins. PLAN: Micro foam chemical ablation left leg incompetent varicose veins Nurse notes, history and physical were reviewed and confirmed, see attached forms. The nurse was present throughout the physical exam and consultation Dictated by: Hoang Montoya MD on 09/03/2023 at 13:22 Approved by: Hoang Montoya MD on 09/03/2023 at 13:25
== END 2023-09-03 12:19 | disposition home or self-care (01) ==
LOC: VC 12:18
PROVIDERS: PCP Radiology Diagnostic Radiology; Visit Provider Radiology Diagnostic Radiology
DX: I80.01 Phlebitis and thrombophlebitis of superficial vessels of right lower extremity (principal); I83.93 Asymptomatic varicose veins of bilateral lower extremities
CPT/HCPCS: 93971; G0463

== ENCOUNTER 2023-10-10 13:25 | Outpatient (OUT) | payer OTHER, SELFPAY ==
--- NOTE | 2023-10-10 13:29 | VEIN_ITS ---
[address] [address] Patient Name: BELIA RIOS MRN: [id number] date: 1955 Sex: F Assigned Patient Location: Current Patient Location: Accession/Order Number: [id number] Exam Date: 10/10/2023 14:05 Report Date: 10/10/2023 15:29 At the request of: RIP ALCARAZ Procedure: VC INJ Foam Sclerosant WUS ASSESSMENT CLINICIAN PROCEDURE: VC INJ Foam Sclerosant WUS ASSESSMENT CLINICIAN HISTORY: Pain due to varicose veins of bilateral legs I83.813 Pre-operative Diagnosis: CEAP class C5 venous insufficiency with pain, tenderness, edema and incompetent branch saphenous vein(s), chronic venous insufficiency left leg secondary to venous incompetence Post-operative Diagnosis: CEAP class C5 venous insufficiency with pain, tenderness, edema and incompetent branch saphenous vein(s), chronic venous insufficiency left leg secondary to venous incompetence Procedure Performed: 1. Ultrasound-guided microfoam chemical ablation with Varithenaregistered 2. Intraoperative ultrasound guidance Physician: Elier Milian M.D. Anesthesia: None Indications for Procedure: 67 year old female. Symptoms including marked lower extremity edema, chronic swelling, pain, dilated bulging veins, heaviness for many years despite conservative medical therapy including medical compression stockings, exercise and analgesics. Prior procedures include microfoam chemical ablation. Multiple incompetent varicosities of the left leg. Duplex scan showed reflux and enlarged diameters up to 4 mm. The patient underwent informed consent including management options where the complications of infection, bleeding, pain, and skin injury were discussed. Particular attention was spent discussing thrombus extension and deep vein thrombosis as well as the possibility of pulmonary embolus and treatment with oral or injectable blood thinners. Procedure: The patient walked to the procedure room. All applicable staff donned appropriate apparel. A procedure timeout was performed to confirm correct patient, correct extremity, correct procedure, and correct room set-up including presence of all applicable supplies, devices, and drugs. A duplex ultrasound, performed by myself confirmed the location and incompetence of branch saphenous varicosities and their course was marked on the skin together with the dilated tributaries. The extent of treatment of the vein and the associated varicosities was determined through ultrasound mapping. The skin was prepped and then punctured with a butterfly needle and advanced under ultrasound guidance. The Varithenaregistered canister was activated and the canister was primed and purged as required in the instructions for use. Varithenaregistered was drawn into a sterile syringe. Varithenaregistered was slowly administered at 0.5-1.0 cc/second with close observation by ultrasound of its course in the vessels. Total volume utilized was: 15 mL (5 mL into a 4 mm varicosity of the anterior mid lower left leg; 10 mL into a 4 mm varicosity of the proximal medial lower left leg). Following administration of Varithenaregistered the leg was elevated and the patient was asked to repeatedly dorsiflex the ankle to limit flow of Varithenaregistered into perforating veins. Once appropriate spasm had been confirmed in the treated veins, the vascular catheter was removed from the leg and light pressure was applied over the puncture site for hemostasis. The common femoral and deep superficial veins were then evaluated for flow and compressibility prior to dressing placement. The lower extremity was kept elevated at 45 degrees above the horizontal and cording material was applied over the saphenous segments and tributaries to allow for eccentric compression over the target vessels including the targeted saphenous vein(s). A multilayer dressing was applied consisting of foam pads, coban and thigh-high 20-30 mm Hg compression elastic support hose were placed on the patient. The leg was lowered only after compression had been applied and the patient was immediately ambulatory. The patient ambulated 10 minutes under supervision and was without apparent concerns at time of release. Post-care instructions include advising patient to keep post-treatment bandages in place and dry for 48 hours, avoid extended periods of inactivity, avoid heavy exercise for one week, wear compression stockings on the treated leg continuously for two weeks, to walk daily for 10 minutes over the next month. The patient was instructed to take an anti-inflammatory medicine as needed and to follow up for color duplex scan of the Saphenous veins, the treated branch saphenous varicosities, the adjacent deep veins, and additional treatment within 7 days. PERSONNEL: Marylou Tijerina RN Electronically authenticated by: ELIER MILIAN Date: 10/10/2023 15:29
== END 2023-10-10 13:26 | disposition home or self-care (01) ==
LOC: VC 13:25
PROVIDERS: PCP Radiology Diagnostic Radiology; Visit Provider Radiology Diagnostic Radiology
DX: I83.813 Varicose veins of bilateral lower extremities with pain (principal)
CPT/HCPCS: 36466

== ENCOUNTER 2023-10-22 13:59 | Outpatient (OUT) | payer OTHER, SELFPAY ==
--- NOTE | 2023-10-22 14:02 | VEIN_ITS ---
Patient Name: BELIA RIOS MR#: [id number] : 1955 Exam Date: 10/22/2023 Ordering Doctor: DR RIP ALCARAZ M.D. RADIOLOGY REPORT PROCEDURE: VC EXT VENOUS LT LIMITED COMPARISON: VC EXT VENOUS LT LIMITED, 08/09/2023. INDICATIONS: I80.02 Phlebitis of superficial veins of lt lower extremity TECHNIQUE: Lower extremity painting scale and Duplex Doppler evaluation of the deep venous system from the inguinal ligament through the calf veins. FINDINGS: REGION: Left lower extremity. THROMBI: Negative for DVT. Varithena induced thrombus visualized at mid/med calf and mid/ant calf. COMPRESSIBILITY: Non-compressible segments corresponding to thrombus FLOW: Areas of no flow corresponding to thrombus OTHER: Patent varicose veins remain at mid/med thigh 4.2mm with 0.9s reflux. Patent varicose vein mid/med thigh 5.4mm with 1.1s reflux. Patent varicose vein mid/med thigh 4.9mm with 1.2s reflux. CONCLUSION: 1. Successful post ablation occlusion of left leg treated branch saphenous varicosities. Dictated by: Elier Milian M.D. on 10/22/2023 at 15:02 Approved by: Elier Milian M.D. on 10/22/2023 at 15:03
--- NOTE | 2023-10-22 14:02 | VEIN_ITS ---
Patient Name: BELIA RIOS MR#: [id number] : 1955 Exam Date: 10/22/2023 Ordering Doctor: DR RIP ALCARAZ M.D. RADIOLOGY REPORT PROCEDURE: [facility] EST LMTD VEIN CENTER - OFFICE VISIT FOLLOW UP [facility] PROGRESS NOTES: The patient reports improvement in leg symptoms. There has been interval reduction in varicosities. The patient has followed our recommendations to walk 20-30 minutes once or twice per day since the procedure. Physical exam demonstrates decrease in varicosities of the leg. Persistent varicosities are identified along the legs bilaterally. Chronic skin changes noted. Review of the ultrasound performed the same day demonstrates occlusive thrombus extending throughout the treated vein(s), see separate report, consistent with a successful ablation. No thrombus extending into or beyond the saphenofemoral junction. The patient expressed a desire to proceed with treatment of remaining incompetent branch saphenous varicosities. The patient was informed that treatment was a process and would require several procedures/sessions. VEIN/[facility] EST LMTD IMPRESSION: 1. Successful ablation of the left leg treated branch saphenous vein(s). 2. Persistent varicose veins and lower extremity symptoms. PLAN: Microfoam chemical ablation of right leg incompetent branch saphenous varicosities. Nurse notes, history and physical were reviewed and confirmed, see attached forms. The nurse was present throughout the physical exam and consultation Dictated by: Elier Milian M.D. on 10/22/2023 at 15:03 Approved by: Elier Milian M.D. on 10/22/2023 at 15:04
== END 2023-10-22 14:00 | disposition home or self-care (01) ==
LOC: VC 14:00
PROVIDERS: PCP Radiology Diagnostic Radiology; Visit Provider Radiology Diagnostic Radiology
DX: I80.02 Phlebitis and thrombophlebitis of superficial vessels of left lower extremity (principal)
CPT/HCPCS: 93971; G0463